=== PATIENT | female | born 1960 | race Caucasian/White ===

== ENCOUNTER 2023-01-24 12:40 | Emergency (ER) | payer MEDICARE, MEDICAID ==
[~2023-01-24] VITALS: Ht 160 cm; Wt 63.0 kg
[2023-01-24] MEDS ORDERED: LIDOcaine 5% patch TP STA (14:13)
[2023-01-24] MEDS ORDERED: TRAM50TA2 PO (15:15)
[2023-01-24] MEDS ORDERED: LIDO1ADH67 TD (15:15)
== END 2023-01-24 15:42 | disposition home or self-care (01) ==
LOC: ER 12:40
DX: S00.83XA Contusion of other part of head, initial encounter (principal); W19.XXXA Unspecified fall, initial encounter; Y93.89 Activity, other specified; Y92.89 Other specified places as the place of occurrence of the external cause; Y99.8 Other external cause status
CPT/HCPCS: 70450; 99284